=== PATIENT | male | born 1970 | race Caucasian/White ===

== ENCOUNTER 2017-09-22 06:06 | Emergency (ER) | payer OTHER ==
[2017-09-22 06:34] VITALS: BP 135/62; PULSE 70; O2SAT 98
[2017-09-22] MEDS ORDERED: TORAdol 30 mg Injection IM ONE (06:45)
[2017-09-22] MEDS ORDERED: Norflex 60 MG/2 ML IM ONE (06:45)
--- NOTE | 2017-09-22 06:45 | ERPHSYRPT ---
- History of Present Illness Time Seen by Provider: 09/22/17 06:39 Source: patient, family Exam Limitations: no limitations Patient Subjective Stated Complaint: Per patient c/o mid lower back pain rad to right leg with numbness and tingling x3 months was seen by hand folder 3 weeks ago and placed on prednisone, no trauma reported, aox3, otherwise healthy, no other complaints. Triage Nursing Assessment: Per patient c/o mid lower back pain rad to right leg with numbness and tingling x3 months was seen by hand folder 3 weeks ago and placed on prednisone, no trauma reported, aox3, otherwise healthy, no other complaints. Physician History: pt has three month hx of low back pain with gradual onset but long hx of construction work prior - no fall or trauma, now has right radicular pain consistent with DDD ; he has no urinary symtpoms, no hx of cancer , no weight loss , no abdominal pain no fever or prior back surgery - NO hx of any IV drug abuse no saddle anesthesia , normal neuro exam today; pain is reproduced exactly by bending and right leg raise , no vertebra tenderness , just paraspinous muscles tenderness no flank tenderness saw PCP last few weeks and had reuslt from steroid pack Timing/Duration: week(s) Method of Injury: unknown Quality: radiating, sharp, aching Back Pain Location: lumbar spine, paraspinous muscles Back Pain Radiation: lower legs Severity of Pain-Max: moderate Severity of Pain-Current: moderate Modifying Factors: Improves With: movement Associated Symptoms: denies symptoms, numbness in legs/feet, lower back pain, muscle spasms, No fever, No urinary incontinence, No loss of bowel control, No nausea, No vomiting, No problems urinating Previous symptoms: same symptoms as today, recently seen, recently treated Allergies/Adverse Reactions: No Known Drug Allergies Allergy (Unverified 01/12/16 20:32) Hx Tetanus, Diphtheria Vaccination/Date Given: Yes Hx Influenza Vaccination/Date Given: No Hx Pneumococcal Vaccination/Date Given: No - Review of Systems Constitutional: No Fever, No Chills Eyes: No Symptoms Ears, Nose, & Throat: No Symptoms Respiratory: No Cough, No Dyspnea Cardiac: No Chest Pain, No Edema, No Syncope Abdominal/Gastrointestinal: No Abdominal Pain, No Nausea, No Vomiting, No Diarrhea Genitourinary Symptoms: No Dysuria, No Frequency, No Incontinence, No Urinary Retention, No Flank Pain Musculoskeletal: Back Pain, No Neck Pain Skin: No Rash Neurological: No Dizziness, No Focal Weakness, No Sensory Changes Psychological: No Symptoms Endocrine: No Symptoms Hematologic/Lymphatic: No Symptoms Immunological/Allergic: No Symptoms All Other Systems: Reviewed and Negative - Past Medical History Pertinent Past Medical History: No Neurological History: No Pertinent History ENT History: No Pertinent History Cardiac History: Hypertension Respiratory History: Other Endocrine Medical History: No Pertinent History Musculoskeletal History: No Pertinent History GI Medical History: No Pertinent History History: No Pertinent History Psycho-Social History: No Pertinent History Male Reproductive Disorders: No Pertinent History - Past Surgical History Past Surgical History: No Neuro Surgical History: No Pertinent History Musculoskeletal: Orthopedic Surgery Other Surgical History: tonsill adnoidectomy - Social History Smoking Status: Never smoker Exposure to second hand smoke: No Drug Use: none Patient Lives Alone: No - Nursing Vital Signs Nursing Vital Signs: Initial Vital Signs Temperature 98.5 F 09/22/17 06:26 Pulse Rate 70 09/22/17 06:26 Respiratory Rate 12 09/22/17 06:26 Blood Pressure 135/62 09/22/17 06:26 O2 Sat by Pulse Oximetry 98 09/22/17 06:26 Pain Scale Pain Intensity 8 - Physical Exam General Appearance: no apparent distress, alert Eye Exam: PERRL/EOMI, eyes nml inspection Neck Exam: normal inspection, non-tender, supple, full range of motion, No meningismus, No midline tenderness Respiratory Exam: normal breath sounds, lungs clear, No respiratory distress Cardiovascular Exam: regular rate/rhythm, normal heart sounds Gastrointestinal Exam: soft, No tenderness, No distention, No mass, No guarding , No pulsatile mass, No rebound Rectal Exam: deferred Back Exam: normal inspection, decreased range of motion, muscle spasm, No normal range of motion, No CVA tenderness, No vertebral tenderness, No point tenderness Extremity Exam: normal inspection, normal range of motion, No calf tenderness, No pedal edema Peripheral Pulses: carotid (R): 2+, carotid (L): 2+, femoral (R): 2+, femoral (L ): 2+, dorsalis-pedis (R): 2+, dorsalis-pedis (L): 2+ Neurologic Exam: alert, oriented x 3, cooperative, dough braker II-XII nml as tested, normal mood/affect, nml station & gait, sensation nml, No motor deficits Skin Exam: normal color, warm, dry, No rash SpO2 Interpretation: normal SpO2: 98 Oxygen Delivery: Room Air - Course Nursing assessment & vital signs reviewed: Yes - Progress Progress: improved, re-examined Progress Note: 09/22/17 06:43 discussed risk/limits of imaging and other ER testing available and pt prefers to have MRI and further workup outpt with PCP 09/22/17 07:05 pt had good relief with meds in ER and wishes DC to f/u PCP now Counseled pt/family regarding: diagnosis, need for follow-up - Departure Time of Disposition: 07:04 Departure Disposition: Home Clinical Impression: Degenerative disc disease, lumbar, Back pain of lumbosacaral region with sciatica Condition: Good Critical Care Time: No Referrals: LOKI COLON MD [Primary Care Provider] - Instructions: Low Back Pain, Back Pain With Sciatica, Herniated Disc Additional Instructions: followup with your primary medical provider for further workup such as MRI and return meantime if not improving or further concerns meantime; Prescriptions: Hydrocodone Bit/Acetaminophen [[place] 5-325 Tablet] 1 each PO Q4-6HPRN PRN #14 tablet PRN Reason: Pain Methylprednisolone [Medrol Dose Pack] 4 mg PO UD #1 tab Orphenadrine Citrate 100 mg [Norflex 100 MG Tablet] 100 mg PO BID #20 tab
[2017-09-22] MEDS ORDERED: TORAdol 30 mg Injection ONE (06:47)
[2017-09-22] MEDS ORDERED: Norflex 60 MG/2 ML ONE (06:58)
== END 2017-09-22 07:18 | disposition home or self-care (01) ==
LOC: ED 06:06
DX: M54.40 Lumbago with sciatica, unspecified side (principal)
CPT/HCPCS: 99283; J1885; J2360

== ENCOUNTER 2022-12-08 13:10 | Emergency (ER) | payer OTHER ==
[2022-12-08 13:49] LABS: Absolute Neutrophil Ct (ANC) 3.96 x10^3/uL (1.4-6.9); BASOPHIL % 0.9 % (0.0-0.4); Basophil (Absolute #) 0.06 x10^3/uL (0-0.4); Eosinophil % 3.1 % (0.00-5.0); Hematocrit 44.1 % (42-50); IMMATURE GRAN # 0.01 x10^3u/L (0.00-0.03); IMMATURE GRAN % 0.2 % (0.00-0.4); Lymphocyte (Absolute #) 1.83 x10^3/uL (1.0-4.6); Mean Cell Volume 87.3 fL (78-100); Mean Corpuscular Hemoglobin 29.7 pg (26-32); Mean Platelet Volume 9.9 fL (7.5-11.0); Monocyte (Absolute #) 0.47 x10^3/uL (0.0-1.3); Monocytes % 7.2 % (0.0-12.0); Neutrophil % 60.6 % (36.0-66.0); Platelet Count 196 x10^3/uL (150-450); Red Blood Count 5.05 x10^6/uL (4.1-5.6); Red Cell Distribution Width 12.8 % (11.5-14.0); White Blood Count 6.5 x10^3/uL (4.0-10.5)
--- NOTE | 2022-12-08 13:50 | ERPHSYRPT ---
- History of Present Illness Source: patient, other () Exam Limitations: no limitations Patient Subjective Stated Complaint: Pt states "I was walking upstairs and I felt palpitations and my watch said my heartrate was 150. I sent the strip to my and we came here." Triage Nursing Assessment: Pt presented alert and oriented X 3, skin pwd. Pt ambulates with an upright steady gait, able to sepak in clear full sentences. Pt resting comfortably. Physician History: 52 yo wm w palpatations while walking up 3 stairs at work. Pt's watch demo nstrated HR of 150. Symptoms have resolved, but palpatations were accompanied by dyspnea/chest tightness wo N/v/diaphoresis. Pt/ deny HTN/[place]/CAD/hyperlipidemia/DM/tobacco abuse. Timing/Duration: today Activities at Onset: other (walking up 3 stairs) Quality: tightness Location: substernal Chest Pain Radiation: no radiation Severity of Pain-Max: mild Severity of Pain-Current: mild Modifying Factors: Improves With: nothing Nitro Today/Relief: no nitro taken today Aspirin Treatment Today: no aspirin today Associated Symptoms: denies symptoms Prior Chest Pain/Cardiac Workup: no prior chest pain Allergies/Adverse Reactions: No Known Drug Allergies Allergy (Unverified 01/12/16 20:32) Home Medications: No Reportable Medications [No Reported Medications] 12/08/22 [History] Hx Tetanus, Diphtheria Vaccination/Date Given: Yes Hx Influenza Vaccination/Date Given: No Hx Pneumococcal Vaccination/Date Given: No Immunizations Up to Date: Yes Travel Risk - International Travel Have you traveled outside of the country in past 3 weeks: No - Coronavirus Screening Are you exhibiting any of the following symptoms?: No Close contact with a COVID-19 positive Pt in past 14-21 Days: No - Vaccine Status Have you recieved a Covid-19 vaccination: Yes Director Auto: Moderna - Vaccination Dates Date of 2cond Vaccination (if applicable): 2020 - Review of Systems Constitutional: No Symptoms Eyes: No Symptoms Ears, Nose, & Throat: No Symptoms Respiratory: No Symptoms, Dyspnea Cardiac: No Symptoms, Chest Pain Abdominal/Gastrointestinal: No Symptoms Genitourinary Symptoms: No Symptoms Musculoskeletal: No Symptoms Skin: No Symptoms Neurological: No Symptoms Psychological: No Symptoms Endocrine: No Symptoms Hematologic/Lymphatic: No Symptoms Immunological/Allergic: No Symptoms - Past Medical History Pertinent Past Medical History: No Neurological History: No Pertinent History ENT History: No Pertinent History Cardiac History: Hypertension Respiratory History: Other Endocrine Medical History: No Pertinent History Musculoskeletal History: No Pertinent History GI Medical History: No Pertinent History History: No Pertinent History Psycho-Social History: No Pertinent History Male Reproductive Disorders: No Pertinent History - Past Surgical History Past Surgical History: Yes Neuro Surgical History: No Pertinent History Musculoskeletal: Orthopedic Surgery Other Surgical History: tonsill adnoidectomy - Social History Smoking Status: Never smoker Exposure to second hand smoke: No Drug Use: none Patient Lives Alone: No - Nursing Vital Signs Nursing Vital Signs: Initial Vital Signs Temperature 98.9 F 12/08/22 13:15 Pulse Rate 88 12/08/22 13:15 Respiratory Rate 20 12/08/22 13:15 Blood Pressure 142/87 12/08/22 13:15 O2 Sat by Pulse Oximetry 98 12/08/22 13:15 Pain Scale Pain Intensity 0 Hypertensive - Physical Exam General Appearance: no apparent distress Eye Exam: PERRL/EOMI, eyes nml inspection Ears, Nose, Throat Exam: normal ENT inspection, TMs normal, pharynx normal, moist mucous membranes Neck Exam: normal inspection, non-tender, supple, full range of motion, No meningismus, No mass, No Brudzinski, No Kernig's, No carotid bruit Respiratory Exam: normal breath sounds, lungs clear, airway intact Cardiovascular Exam: regular rate/rhythm, normal heart sounds, normal peripheral pulses, capillary refill <2 sec, No murmur Gastrointestinal/Abdomen Exam: soft, normal bowel sounds Back Exam: normal inspection, normal range of motion Extremity Exam: normal inspection, normal range of motion Neurologic Exam: alert, oriented x 3, cooperative, frame expander II-XII nml as tested, normal mood/affect, nml cerebellar function, nml station & gait, sensation nml, No motor deficits, No sensory deficit Skin Exam: normal color, warm, dry Lymphatic Exam: No adenopathy SpO2 Interpretation: normal SpO2: 98 O2 Delivery: Room Air - Course Nursing assessment & vital signs reviewed: Yes EKG Interpreted by Me: RATE (NSR/Rate85/normal QT-QTc/No acute ST segment changes/Normal T waves) - Radiology Exams Chest X-ray Interpretation: Discussed w/ radiologist (CXR neg) Ordered Tests: Active Orders 24 hr Category Date Time Status EKG-ER Only STAT Care 12/08/22 13:21 Completed CHEST 1 VIEW (PORTABLE) Stat Exams 12/08/22 13:28 Completed CBC W DIFF Stat Lab 12/08/22 13:28 Completed CMP Stat Lab 12/08/22 13:43 Completed MAG [MAGNESIUM] Stat Lab 12/08/22 13:43 Completed NT PRO BNP Stat Lab 12/08/22 13:43 Completed PROTIME WITH INR Stat Lab 12/08/22 13:43 Completed PTT Stat Lab 12/08/22 13:43 Completed T4 (Thyroxine) Stat Lab 12/08/22 Completed TROPONIN Q4H Lab 12/08/22 13:43 Completed TSH [TSH, 3RD Generation] Stat Lab 12/08/22 13:33 Completed Bardy 3-7 Day Holter ONCE RT 12/08/22 16:29 Completed Lab/Rad Data: Laboratory Result Diagrams 12/08/22 13:28 12/08/22 13:43 Laboratory Results 12/08/22 12/08/22 12/08/22 Range/Units Unknown 13:43 13:43 WBC (4.0-10.5) x10^3/uL RBC (4.1-5.6) x10^6/uL Hgb (12.5-18.0) g/dL Hct (42-50) % MCV (78-100) fL MCH (26-32) pg MCHC (32-36) g/dL RDW (11.5-14.0) % Plt Count (150-450) x10^3/uL MPV (7.5-11.0) fL Gran % (36.0-66.0) % Immature Gran % (Auto) (0.00-0.4) % Nucleat RBC Rel Count (0.00-0.1) % Eos # (Auto) (0-0.5) x10^3/uL Immature Gran # (Auto) (0.00-0.03) x10^3u/L Absolute Lymphs (auto) (1.0-4.6) x10^3/uL Absolute Monos (auto) (0.0-1.3) x10^3/uL Absolute Nucleated RBC (0.00-0.01) x10^3u/L Lymphocytes % (24.0-44.0) % Monocytes % (0.0-12.0) % Eosinophils % (0.00-5.0) % Basophils % (0.0-0.4) % Absolute Granulocytes (1.4-6.9) x10^3/uL Basophils # (0-0.4) x10^3/uL PT (9.4-12.5) SECONDS INR (0.8-3.0) APTT (25.1-36.5) SECONDS Sodium (137-145) mmol/L Potassium (3.5-5.1) mmol/L Chloride (98-107) mmol/L Carbon Dioxide (22-30) mmol/L Anion Gap (5-15) MEQ/L BUN (9-20) mg/dL Creatinine (0.66-1.25) mg/dL Estimated GFR ML/MIN Glucose (74-106) mg/dL Calcium (8.4-10.2) mg/dL Magnesium 2.2 (1.6-2.3) mg/dL Total Bilirubin (0.2-1.3) mg/dL AST (17-59) U/L ALT (0-50) U/L Alkaline Phosphatase (38-126) U/L Troponin I < 0.012 (0.000-0.034) ng/mL NT-Pro-B Natriuret Pep (0-900) pg/mL Serum Total Protein (6.3-8.2) g/dL Albumin (3.5-5.0) g/dL Thyroxine (T4) 7.33 (5.53-10.96) ug/dL TSH 3rd Generation (0.47-4.68) mIU/L 12/08/22 12/08/22 12/08/22 Range/Units 13:43 13:43 13:33 WBC (4.0-10.5) x10^3/uL RBC (4.1-5.6) x10^6/uL Hgb (12.5-18.0) g/dL Hct (42-50) % MCV (78-100) fL MCH (26-32) pg MCHC (32-36) g/dL RDW (11.5-14.0) % Plt Count (150-450) x10^3/uL MPV (7.5-11.0) fL Gran % (36.0-66.0) % Immature Gran % (Auto) (0.00-0.4) % Nucleat RBC Rel Count (0.00-0.1) % Eos # (Auto) (0-0.5) x10^3/uL Immature Gran # (Auto) (0.00-0.03) x10^3u/L Absolute Lymphs (auto) (1.0-4.6) x10^3/uL Absolute Monos (auto) (0.0-1.3) x10^3/uL Absolute Nucleated RBC (0.00-0.01) x10^3u/L Lymphocytes % (24.0-44.0) % Monocytes % (0.0-12.0) % Eosinophils % (0.00-5.0) % Basophils % (0.0-0.4) % Absolute Granulocytes (1.4-6.9) x10^3/uL Basophils # (0-0.4) x10^3/uL PT 10.8 (9.4-12.5) SECONDS INR 1.02 (0.8-3.0) APTT 27.1 (25.1-36.5) SECONDS Sodium 137 (137-145) mmol/L Potassium 3.8 (3.5-5.1) mmol/L Chloride 107 (98-107) mmol/L Carbon Dioxide 22 (22-30) mmol/L Anion Gap 11.8 (5-15) MEQ/L BUN 17 (9-20) mg/dL Creatinine 0.77 (0.66-1.25) mg/dL Estimated GFR > 60.0 ML/MIN Glucose 125 H (74-106) mg/dL Calcium 9.1 (8.4-10.2) mg/dL Magnesium (1.6-2.3) mg/dL Total Bilirubin 1.10 (0.2-1.3) mg/dL AST 48 (17-59) U/L ALT 45 (0-50) U/L Alkaline Phosphatase 54 (38-126) U/L Troponin I (0.000-0.034) ng/mL NT-Pro-B Natriuret Pep < 11.5 (0-900) pg/mL Serum Total Protein 7.3 (6.3-8.2) g/dL Albumin 4.4 (3.5-5.0) g/dL Thyroxine (T4) (5.53-10.96) ug/dL TSH 3rd Generation 0.946 (0.47-4.68) mIU/L 12/08/22 Range/Units 13:28 WBC 6.5 (4.0-10.5) x10^3/uL RBC 5.05 (4.1-5.6) x10^6/uL Hgb 15.0 (12.5-18.0) g/dL Hct 44.1 (42-50) % MCV 87.3 (78-100) fL MCH 29.7 (26-32) pg MCHC 34.0 (32-36) g/dL RDW 12.8 (11.5-14.0) % Plt Count 196 (150-450) x10^3/uL MPV 9.9 (7.5-11.0) fL Gran % 60.6 (36.0-66.0) % Immature Gran % (Auto) 0.2 (0.00-0.4) % Nucleat RBC Rel Count 0.0 (0.00-0.1) % Eos # (Auto) 0.20 (0-0.5) x10^3/uL Immature Gran # (Auto) 0.01 (0.00-0.03) x10^3u/L Absolute Lymphs (auto) 1.83 (1.0-4.6) x10^3/uL Absolute Monos (auto) 0.47 (0.0-1.3) x10^3/uL Absolute Nucleated RBC 0.00 (0.00-0.01) x10^3u/L Lymphocytes % 28.0 (24.0-44.0) % Monocytes % 7.2 (0.0-12.0) % Eosinophils % 3.1 (0.00-5.0) % Basophils % 0.9 (0.0-0.4) % Absolute Granulocytes 3.96 (1.4-6.9) x10^3/uL Basophils # 0.06 (0-0.4) x10^3/uL PT (9.4-12.5) SECONDS INR (0.8-3.0) APTT (25.1-36.5) SECONDS Sodium (137-145) mmol/L Potassium (3.5-5.1) mmol/L Chloride (98-107) mmol/L Carbon Dioxide (22-30) mmol/L Anion Gap (5-15) MEQ/L BUN (9-20) mg/dL Creatinine (0.66-1.25) mg/dL Estimated GFR ML/MIN Glucose (74-106) mg/dL Calcium (8.4-10.2) mg/dL Magnesium (1.6-2.3) mg/dL Total Bilirubin (0.2-1.3) mg/dL AST (17-59) U/L ALT (0-50) U/L Alkaline Phosphatase (38-126) U/L Troponin I (0.000-0.034) ng/mL NT-Pro-B Natriuret Pep (0-900) pg/mL Serum Total Protein (6.3-8.2) g/dL Albumin (3.5-5.0) g/dL Thyroxine (T4) (5.53-10.96) ug/dL TSH 3rd Generation (0.47-4.68) mIU/L - Progress Progress: improved Progress Note: 12/08/22 15:27 Nursing note and vital signs reviewed All labs/CXR reviewed and shared w pt No evidence of arrythmias while in ER Holter monitor placed No housing or food insecurities noted Additional history per nurse 12/08/22 17:12 Counseled pt/family regarding: lab results, diagnosis, need for follow-up, rad results Medical Desision Making - Independent Historian Additional History obtained from: Spouse - Diagnostic Testing Diagnostic Testing: Diagnostic tests were ordered,analyzed, and reviewed by me and used in my medical decision making for this patient. Radiologic studies (if ordered) were read by me initially then discussed with the radiologist . 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
--- NOTE | 2022-12-08 13:56 | XRAY ---
Indication: Palpitations. Comparison: January 12, 2016. Portable chest again demonstrates normal heart and lungs. Bony thorax intact. No new/acute findings.
[2022-12-08 14:08] LABS: INR 1.02 (0.8-3.0); PROTIME 10.8 SECONDS (9.4-12.5); PTT 27.1 SECONDS (25.1-36.5)
[2022-12-08 15:17] VITALS: BP 126/79; PULSE 80
[2022-12-08 15:22] LABS: ALBUMIN 4.4 g/dL (3.5-5.0); ALKALINE PHOSPHATASE 54 U/L (38-126); ANION GAP 11.8 MEQ/L (5-15); BLOOD UREA NITROGEN 17 mg/dL (9-20); CHLORIDE 107 mmol/L (98-107); Calcium 9.1 mg/dL (8.4-10.2); Carbon Dioxide 22 mmol/L (22-30); Creatinine 1 0.77 mg/dL (0.66-1.25); EST GLOMERULAR FILTRATION RATE > 60.0 ML/MIN; Glucose 125 mg/dL (74-106); NT PRO BNP < 11.5 pg/mL (0-900); Potassium 3.8 mmol/L (3.5-5.1); SGOT/AST 48 U/L (17-59); SGPT/ALT 45 U/L (0-50); SODIUM 137 mmol/L (137-145); Total Protein 7.3 g/dL (6.3-8.2)
[2022-12-08 15:30] VITALS: O2SAT 98
== END 2022-12-08 15:36 | disposition home or self-care (01) ==
LOC: ED 13:10
DX: R00.2 Palpitations (principal); R06.00 Dyspnea, unspecified; R07.9 Chest pain, unspecified; I10 Essential (primary) hypertension
CPT/HCPCS: 36415; 71045; 80053; 83735; 83880; 84436; 84443; 84484; 85025; 85610; 85730; 93005; 93225; 99283

== ENCOUNTER 2025-01-19 19:18 | Emergency (ER) | payer OTHER ==
--- NOTE | 2025-01-19 20:17 | ERPHSYRPT ---
- History of Present Illness Time Seen by Provider: 01/19/25 20:17 Source: patient Exam Limitations: no limitations Physician History: This is a 54-year-old white male patient of Dr. Awad who presents to the emergency department accompanied by his spouse with the complaint of fevers, chills, nonproductive cough runny nose and shortness of breath. He denies chest pain. He has no abdominal pain. He has had no nausea vomiting or diarrhea symptoms. Timing/Duration: day(s) (7), worse Fever Severity: mild Associated Symptoms: cough (Nonproductive), rhinorrhea, shortness of breath, No chest pain Allergies/Adverse Reactions: No Known Drug Allergies Allergy (Unverified 01/12/16 20:32) Hx Tetanus, Diphtheria Vaccination/Date Given: Yes Hx Influenza Vaccination/Date Given: No Hx Pneumococcal Vaccination/Date Given: No Travel Risk - International Travel Have you traveled outside of the country in past 3 weeks: No - Emerging Infectious Disease Are you exhibiting symptoms associated with any current EIDs: Yes Symptoms: Cough: New Onset, Fever, Shortness of Breath - Review of Systems Constitutional: Fever Eyes: No Symptoms Ears, Nose, & Throat: Nose Congestion, Nose Discharge Respiratory: No Symptoms, Cough Cardiac: No Symptoms Abdominal/Gastrointestinal: No Symptoms Genitourinary Symptoms: No Symptoms Musculoskeletal: No Symptoms Skin: No Symptoms Neurological: No Symptoms Psychological: No Symptoms Endocrine: No Symptoms Hematologic/Lymphatic: No Symptoms Immunological/Allergic: No Symptoms All Other Systems: Reviewed and Negative - Past Medical History Pertinent Past Medical History: No Neurological History: No Pertinent History ENT History: No Pertinent History Cardiac History: Hypertension Respiratory History: Other Endocrine Medical History: No Pertinent History Musculoskeletal History: No Pertinent History GI Medical History: No Pertinent History History: No Pertinent History Psycho-Social History: No Pertinent History Male Reproductive Disorders: No Pertinent History - Past Surgical History Past Surgical History: Yes Neuro Surgical History: No Pertinent History Musculoskeletal: Orthopedic Surgery Other Surgical History: tonsill adnoidectomy - Social History Smoking Status: Never smoker Exposure to second hand smoke: No Drug Use: none Patient Lives Alone: No - Nursing Vital Signs Nursing Vital Signs: Initial Vital Signs Temperature 99.4 F 01/19/25 20:21 Pulse Rate 107 H 01/19/25 20:21 Respiratory Rate 20 01/19/25 20:21 Blood Pressure 138/83 01/19/25 20:21 O2 Sat by Pulse Oximetry 96 01/19/25 20:21 Pain Scale Pain Intensity 3 - Physical Exam General Appearance: no apparent distress, alert Eye Exam: PERRL/EOMI, eyes nml inspection ENT Exam: normal ENT inspection, no apparent trauma, hearing grossly normal Neck Exam: normal inspection, non-tender, supple, full range of motion Respiratory Exam: normal breath sounds, chest non-tender, lungs clear, no respiratory distress, no accessory muscle use, decreased breath sounds, No respiratory distress Cardiovascular/Chest Exam: tachycardia Gastrointestinal/Abdominal Exam: soft, non tender, no distention, no mass, no guarding, no ecchymosis, no organomegaly, no pulsatile mass, normal bowel sounds Rectal Exam: not done Extremity Exam: non-tender, normal range of motion, normal inspection Neurologic Exam: alert, oriented x 3, cooperative, donor services team leader II-XII nml as tested, normal mood/affect, nml cerebellar function, nml station & gait, sensation nml Skin Exam: normal color, warm, dry Lymphatic: No adenopathy SpO2 Interpretation: normal O2 Delivery: Room Air - Course Nursing assessment & vital signs reviewed: Yes Ordered Tests: Active Orders 24 hr Category Date Time Status CHEST 1 VIEW (PORTABLE) Stat Exams 01/19/25 20:38 Taken UA W/RFX UR CULTURE Stat Lab 01/19/25 20:20 Completed Medication Summary Discontinued Medications Generic Name Dose Route Start Last Admin Trade Name Marissa PRN Reason Stop Dose Admin Hydrocodone Bitart/Acetaminophen 10 ml 01/19/25 21:00 Hydrocodone/Acetaminophen 5 Ml Udcup PO 01/19/25 21:01 STAT STA Hydrocodone Bitart/Acetaminophen Confirm 01/19/25 21:07 Hydrocodone/Acetaminophen 5 Ml Udcup Administered 01/19/25 21:08 Dose 10 ml .ROUTE .STK-MED ONE Cefuroxime Axetil 500 mg 01/19/25 21:00 Cefuroxime Axetil 500 Mg Tablet PO 01/19/25 21:01 STAT ONE Prednisone 20 mg 01/19/25 21:00 Prednisone 20 Mg Tablet PO 01/19/25 21:01 STAT ONE Prednisone Confirm 01/19/25 21:07 Prednisone 20 Mg Tablet Administered 01/19/25 21:08 Dose 20 mg .ROUTE .STK-MED ONE Lab/Rad Data: Laboratory Results 01/19/25 01/19/25 Range/Units 20:20 20:20 Urine Color Yellow (Yellow) Urine Appearance Clear (Clear) Urine pH 7.5 (4.6-8.0) Ur Specific [place] 1.010 (1.005-1.030) Urine Protein 30 (Negative) Urine Glucose (UA) Negative (Negative) mg/dL Urine Ketones Negative (Negative) Urine Blood Trace (Negative) Urine Nitrite Negative (Negative) Urine Bilirubin Negative (Negative) Urine Urobilinogen 0.2 (0.2) mg/dL Ur Leukocyte Esterase Negative (Negative) U Hyaline Cast (Auto) NONE SEEN (0-2) /LPF Urine Microscopic RBC 0-2 (0-5) /HPF Urine Microscopic WBC 0-2 (0-5) /HPF Ur Epithelial Cells None Seen (None Seen) /HPF Urine Bacteria None Seen (None Seen) /HPF Urine Culture Reflexed NO (NO) Influenza Type A Ag NEGATIVE (NEGATIVE) Influenza Type B Ag NEGATIVE (NEGATIVE) RSV (PCR) NEGATIVE (NEGATIVE) SARS-CoV-2 (PCR) NEGATIVE (NEGATIVE) - Progress Progress: improved Progress Note: 01/19/25 21:04 My medical decision making and the assignment of moderate complexity to this patient's medical issue today is based on review of the patient's past medical history, review the patient's medication list, reviewed patient drug allergy list, history present illness and physical findings on examination. The workup in this patient includes chest x-ray, viral swabs, group A strep test. Differential diagnosis includes but is not limited to pneumonia, upper respiratory infection, viral illness, strep pharyngitis The preliminary chest x-ray report was interpreted by me. The chest x-ray shows a right lower lobe infiltrate. 01/19/25 21:11 I interpreted the patient's laboratory data results. Based on the laboratory data results, there are no acute, emergent medical issues. Counseled pt/family regarding: lab results, diagnosis, need for follow-up, rad results Medical Desision Making - Independent Historian Additional History obtained from: Spouse - Diagnostic Testing Diagnostic test were ordered, analyzed, and reviewed by me: Yes Radiological Interpretation: Interpreted by me, Teleradiologist Report - Risk of complications The pt has a mod risk of morbidity or mortality based on: Need for prescription drug management - Departure Departure Disposition: Home Clinical Impression: Right lower lobe pulmonary infiltrate Condition: Stable Critical Care Time: No Referrals: VICKEY AWAD MD [Primary Care Provider] - Follow up/PCP as directed Additional Instructions: Drink plenty of clear liquids. Avoid exposure to any kind of smoke. In addition to the cough medicine, and if there are no contraindications, add ibuprofen 600 mg orally with food 3 times a day for 5 days to help control fever and aches and pains. Take your antibiotics and other medications as prescribed Prescriptions: cefuroxime axetiL [Cefuroxime] 500 mg PO BID #10 tablet Prednisone 10 mg [Deltasone 10 mg] 10 mg PO TID #12 tablet Hydrocodone/Acetaminophen [Hydrocodone-Acetamn 7.5-325/15] 10 ml PO Q8H PRN #120 ml MDD 30 ml PRN Reason: Cough
[2025-01-19 20:22] VITALS: TEMP 99.4
[2025-01-19 20:40] LABS: Appearance Clear (Clear); Bacteria None Seen /HPF (None Seen); Bilirubin Negative (Negative); Blood Trace (Negative); Epithelial Cells None Seen /HPF (None Seen); Glucose, Urine Negative (Negative); Hyaline Casts NONE SEEN /LPF (0-2); Ketones Negative (Negative); Leukocyte Esterase Negative (Negative); Nitrite Negative (Negative); Ph 7.5 (4.6-8.0); Protein,Urine Dip 30 (Negative); RBC 0-2 /HPF (0-5); Urobilinogen 0.2 mg/dL (0.2); WBC 0-2 /HPF (0-5)
[2025-01-19 21:04] LABS: INFLUENZA A NEGATIVE (NEGATIVE); INFLUENZA B NEGATIVE (NEGATIVE); RESPIRATORY SYNCTIAL VIRUS NEGATIVE (NEGATIVE); SARS-CoV-2 Xpert Express NEGATIVE (NEGATIVE)
[2025-01-19] MEDS ORDERED: DELTASONE 20 MG ONE (21:07)
[2025-01-19] MEDS ORDERED: HYDROCODONE-ACETAMIN 2.5-108/5 ML SOLUTION ONE (21:07)
[2025-01-19] MEDS: DELTASONE 20 MG PO ONE (21:09)
[2025-01-19] MEDS: HYDROCODONE-ACETAMIN 2.5-108/5 ML SOLUTION PO STA (21:10)
[2025-01-19] MEDS: CEFTIN 500 MG PO ONE (21:13)
[2025-01-19 21:21] VITALS: BP 126/81; PULSE 101; RESP 26; O2SAT 95
--- NOTE | 2025-01-20 08:40 | XRAY ---
Indication: Fever and cough. Comparison: December 08, 2022 Portable chest again demonstrates normal heart and lungs. Bony thorax intact. No new/acute findings.
== END 2025-01-19 21:51 | disposition home or self-care (01) ==
LOC: ED 19:18
DX: R91.8 Other nonspecific abnormal finding of lung field (principal); R50.9 Fever, unspecified; R05.9 Cough, unspecified; R06.02 Shortness of breath; I10 Essential (primary) hypertension; Z79.52 Long term (current) use of systemic steroids; Z79.891 Long term (current) use of opiate analgesic; Z79.899 Other long term (current) drug therapy
CPT/HCPCS: 0241U; 71045; 81001; 99285; 99284; A9270-GY